=== PATIENT | male | born 1990 | race Two or more races ===

== ENCOUNTER 2019-01-23 00:46 | Emergency (ER) | payer SELFPAY ==
[~2019-01-23] VITALS: Ht 182.9 cm; Wt 82.0 kg
[2019-01-23 04:54] VITALS: BP 96/58
== END 2019-01-23 06:00 | disposition home or self-care (01) ==
LOC: ED 05:49
DX: F10.120 Alcohol abuse with intoxication, uncomplicated (principal)
CPT/HCPCS: 36415; 80307; 99283